=== PATIENT | male | born 1960 | race Caucasian/White ===

== ENCOUNTER 2020-08-05 21:35 | Emergency (ER) | payer MEDICARE ==
[~2020-08-05] VITALS: Ht 180.3 cm; Wt 104.0 kg
[2020-08-05] MEDS ORDERED: FLEXERIL5 M1 PO (22:20)
[2020-08-05] MEDS ORDERED: PREDNISONE5 M2 PO (22:21)
[2020-08-05 22:29] LABS: IMMATURE GRANULOCYTES 0.7 % (0.0-5.0); MEAN CELL VOLUME 94.3 fL CALC (80.0-100.0); MEAN CORPUSCULAR HGB 31.2 pG CALC (26.0-32.0); MEAN CORPUSCULAR HGB CONC 33.1 g/dL CAL (32.0-36.0); NEUT# 15.27 thou/uL (1.82-7.42); RED BLOOD COUNT 6.12 mill/uL (4.70-6.10); RED CELL DISTRI WIDTH 12.5 % (11.5-15.5)
[2020-08-05 22:30] LABS: HEMATOCRIT 57.7 % (39.0-50.0); HEMOGLOBIN 19.1 g/dl (14.0-18.0)
[2020-08-05 22:43] LABS: ALKALINE PHOSPHATASE 133 u/l (38-126); ANION GAP 19 (6-22 (CALC)); BUN 21 mg/dL (9-20); BUN/CREATININE RATIO 13 (12-20 (CALC)); CARBON DIOXIDE 33 mmol/l (22-30); CHLORIDE 89 mmol/l (95-108); CREATININE 1.5 mg/dL (0.7-1.3); GFR 48 ML/MIN (>=60 (CALC)); GFR FOR AFR.AMER. 58 ML/MIN (>=60 (CALC)); LIPASE 102 u/l (23-300); POTASSIUM 4.4 mmol/l (3.5-5.1); SGOT/AST 37 u/l (17-59); SODIUM 137 mmol/l (137-146); TOTAL PROTEIN 10.2 g/dL (6.3-8.2)
[2020-08-05 22:44] LABS: BILIRUBIN, TOTAL 2.2 mg/dL (0.0-1.4)
[2020-08-06 02:10] VITALS: BP 145/78
== END 2020-08-06 02:23 ==
LOC: ED 21:35 → ED-I 08-06 00:50 → ED 08-06 02:23
PROVIDERS: Emergency Medicine
DX: K56.609 Unspecified intestinal obstruction, unspecified as to partial versus complete obstruction (principal); Z95.5 Presence of coronary angioplasty implant and graft; Z20.822 Contact with and (suspected) exposure to COVID-19
CPT/HCPCS: Q9967